=== PATIENT | female | born 1950 | race Caucasian/White ===

== ENCOUNTER 2021-05-22 11:52 | Inpatient (IN) | payer MEDICARE ==
--- NOTE | 2021-05-21 20:00 | NUR ---
SPOKE WITH PATIENT'S SPOUSE AND UPDATE GIVEN. EXPLAINED PATIENT IS CALMER THIS EVENING AND HAD AN EPISODE OF BEING TEARFUL IN THE ATERNOON. PATIENT'S SPOUSE REPORTED TO NURSE SHE WAS HAVING THE SAME ISSUES AT HOME PRIOR TO GOING TO [facility]. RELATED FAMILY IS GOING TO WAIT ABOUT VISITING UNTIL PATIENT IS MORE AT EASE AND COMFORTABLE WITH NEW ENVIRONMENT.
--- NOTE | ~2021-05-22 | DS ---
PATIENT:TWIN PORTER :46 MEDICAL RECORD: [id number] DISCHARGE SUMMARY ADMISSION DATE: 05/22/21 DISCHARGE DATE: 05/30/21 IDENTIFYING DATA: The patient is 70 years old and she is admitted to the hospital on a voluntary basis. CHIEF COMPLAINT: Aggression. HISTORY OF PRESENT ILLNESS: The patient has a history of dementia. She has been cared for at home, but she has been aggressive with her family. She has no recollection of this and is clearly impaired cognitively. HOSPITAL COURSE: The patient was admitted to the hospital and evaluated from both a medical, psychological, and social standpoint. She was treated with both mood stabilizing and memory enhancing medications and showed improvement through the course of her hospitalization. DISCHARGE DIAGNOSES: AXIS I: Major neurocognitive disorder of the Alzheimer's type with behavioral disturbances. AXIS II: None. AXIS III: Stroke. AXIS IV: Moderate. AXIS V: Global assessment of functioning is 35. PLAN: At the time of discharge, the patient was not acutely dangerous to herself or others. Her behaviors had improved. Her long-term prognosis is guarded. TRANSINT:[id number] Voice Confirmation ID: [id number] DOCUMENT ID: [id number] NINA CLEARY MD CC: [id number] DICTATION DATE: 05/30/21 1441 ADMINISTRATIVE PERSONAL ASSISTANT: 05/31/21 0152 DIS IN 05/30/21 [id number] [place] [address]
[2021-05-22 13:23] LABS: EOSINOPHILS 0.1 % (0-7); HEMATOCRIT 37.6 % (36.0-48.0); HEMOGLOBIN 12.7 g/dL (12-16); LYMPHOCYTES 32.7 % (15-50); MCH 29.6 pg (26.0-34.0); MCHC 33.8 g/dL (31.0-37.0); MCV 87.5 fL (80.0-100.0); MEAN PLATELET VOLUME 8.2 fL (7.4-10.4); NEUTROPHILS 59.2 % (40-80); PLATELET COUNT 265 10x3/uL (130-400); RDW 13.7 % (11.5-14.5); WBC 6.6 10x3/uL (4.8-10.8)
[2021-05-22 13:24] LABS: BILIRUBIN NEGATIVE (NEGATIVE); KETONE NEGATIVE mg/dL (< 1+); NITRITE NEGATIVE (NEGATIVE); PH 7.5 (5.0-8.0); UROBILINOGEN NORMAL mg/dL (< 2)
[2021-05-22 13:32] LABS: UDS - AMPHET NEGATIVE QUAL (NEGATIVE); UDS - BARB NEGATIVE QUAL (NEGATIVE); UDS - BENZO NEGATIVE QUAL (NEGATIVE); UDS - COCAINE NEGATIVE QUAL (NEGATIVE); UDS - OPIATE NEGATIVE QUAL (NEGATIVE); UDS - PCP NEGATIVE QUAL (NEGATIVE); UDS - THC NEGATIVE QUAL (NEGATIVE)
[2021-05-22 13:35] LABS: ANION GAP 12.9 mmol/L (8-16); CARBON DIOXIDE 29.1 mmol/L (21.0-32.0); CREATININE - SERUM 0.8 mg/dL (0.6-1.3)
[2021-05-22 13:49] LABS: ALBUMIN 3.8 g/dL (3.4-5.0); BILIRUBIN - TOTAL 0.44 mg/dL (0.2-1.3); MAGNESIUM - SERUM 2.4 mg/dL (1.8-2.4); PROTEIN - SERUM 7.4 g/dL (6.4-8.2); THYROID STIMULATING HORMONE 1.91 uIU/mL (0.36-3.74)
[2021-05-22 15:28] LABS: SARS-CoV-2 ANTIGEN NEGATIVE- SARS-COV-2 (NEGATIVE)
[2021-05-22] MEDS ORDERED: SEROQUEL50 MG PO (16:25)
[2021-05-22] MEDS ORDERED: ATIVAN1 MG PO (16:26)
[2021-05-22] MEDS ORDERED: CYMBALTA60 MG PO (19:14)
[2021-05-22] MEDS ORDERED: GABAPENTIN300 MG PO (19:15)
[2021-05-22] MEDS ORDERED: NAMENDA10 MG PO (19:16)
[2021-05-22] MEDS ORDERED: TRAZODONE HCL50 MG PO (19:16)
[2021-05-22] MEDS ORDERED: ULTRAM50 MG PO (19:17)
[2021-05-22] MEDS ORDERED: MELATONIN5 M3 PO (19:17)
[2021-05-22] MEDS ORDERED: REMERON15 MG PO (19:18)
[2021-05-22] MEDS ORDERED: DONEPEZIL HCL10 MG PO (19:18)
--- NOTE | 2021-05-22 19:20 | NUR ---
NEW ADMIT TO DOCTOR CLEARY ON RESIDENTIAL FROM [facility] ED FOR ALTERED MENTAL STATUS. PATIENT LIVES AT HOME WITH AND IS A PATIENT OF [facility]. PATIENT HAS BEEN INCREASINGLY CONFUSED, AGITATED, AND COMBATIVE WITH THE . [facility] NURSE REPORTED THAT PATIENT DOES NOT RECOGNIZE HER SPOUSE AND BECOMES AGGRESSIVE WITH HIM. PATIENT TRANSPORTED TO RESIDENTIAL VIA WHEELCHAIR FROM ED. ACCOMPANIED BY AND STAFF. CONSENTS TO TREAT AND DNR CODE STATUS RECEIVED FROM BIRGIT PORTER, AND GUARDIAN. PASSCODE OF 4753 AND UNIT INFORMATION GIVEN TO .
[2021-05-22 19:45] LABS: CHOL - HDL RATIO 2.2 ratio (2.3-4.1); THYROID STIMULATING HORMONE 1.79 uIU/mL (0.36-3.74)
[2021-05-22 20:00] VITALS: BP 138/69
--- NOTE | 2021-05-22 21:51 | NUR ---
PT IS ALERT AND ORIENTED TO SELF ONLY. RESTLESS AT TIMES. EXPRESSES WISHES TO CALL HER DAD TO COME GET HER. EASY TO REDIRECT. ASSISTED INTO BED AND COVERED WITH WARM BLANKET. BED ALARM ON AND PROVIDED NON SKID SOCKS TO PT. MONITOR FOR SAFETY.
[2021-05-23 01:47] VITALS: BP 138/69; BMI 22.1
--- NOTE | 2021-05-23 05:18 | NUR ---
PT TEARFUL. YELLING OUT. STATES "THIS IS TERRIBLE A SITUATION. YOU SHOULD NOT DO PEOPLE LIKE THIS. YOU SHOULD BE ASHAMED OF YOURSELF" ASKED PT WHAT HAS BEEN DONE THAT IS TERRIBLE. PT REFUSES TO ACKNOWLEDGE STAFF AT THIS TIME.
--- NOTE | 2021-05-23 09:10 | NUR ---
pt called to check on pt. passcode given. nurse gave an update on how the firer helper reported for the pt. she did okay was restless. compliant with meds.
[2021-05-23 10:16] VITALS: BP 135/78
[2021-05-23 13:13] VITALS: Wt 59.7 kg
--- NOTE | 2021-05-23 13:45 | NUR ---
IS AMBULATORY,RECEIVED THIS AM UP IN HALLWAY.ORIENTED TO SELF ONLY,VERY CONFUSED.ASKING ABOUT HER TODAY.IS COMPLIANT WITH MEDS AND STAFF.WILL CONTINUE WITH CURRENT PLAN OF CARE,MONITOR FOR CHANGES AND SAFETY.
--- NOTE | 2021-05-23 16:16 | NUR ---
THIS NURSE TALKING TO CAHR DAVIS AT THIS TIME. DAUGHTER STATED "WHAT MEDS DO YOU HAVE HER ON? IF SHE IS ON THAT ABILIFY IT DOES NOT WORK. THEY WERE GIVING HER HIGH HIGH DOSES OF THAT MEDICATION. I DONT UNDERSTAND WHY SHE WAS ON THAT MED. SHE WAS AT PLACE [facility] FOR 9 DAYS AND THEY DIDN'T PUT HER ON NOTHING WHILE SHE WAS THERE." NURSE STATED SHE WAS ON HIGH DOSES OF ABILIFY?" DAUGHTER STATED "YES EVEN THE HOSPICE NURSE WAS DOUBLING THE DOSE OF MEDICATIONS IT OBVIOUSLY WASN'T WORKING. I DONT UNDERSTAND WHY THEY CONTINUE TO DOUBLE THE MEDICATION. MY DAD WAS GIVING HER 50 IN THE MORNING AND AT NIGHT. IT DIDNT WORK. I DONT KNOW WHY THEY WERE GIVING HER THAT MED AT ALL." NURSE STATED THAT SHE WOULD NEED A COMPUTER TO LOOK AT PT NOW AND PREVIOUS MEDICATIONS." NURSE OBTAINTED A COMPUTER PULLED UP PT PAST MEDICATION LIST. NURSE READ OFF MEDICATION LIST. NOTED ABILIFY WAS NOT ON MEDICATION LIST. NURSE READ OFF SEROQUEL AND OTHER MEDICATIONS. SHE STATED "WELL MAYBE IT WAS SEROQUEL. WHATS THE GENETRIC NAME OF THE MEDICATION?" NURSE STATED "QUETIAPINE" "THAT'S THE MEDICATION. THEY JUST DOUBLING IT AND GIVING HER MORE AND MORE. IT WASN'T WORKING. SHE WASN'T SLEEPING AT NIGHT EITHER. THEY GAVE HER THAT OLD TIMEY ANTIDEPRESSION MEDICATION, WHAT TRAZODONE?IT IS SUPPOSE TO MAKE HER SLEEP. WELL IT DIDN'T SHE BE UP AT NIGHT WANDERING AND NOT SLEEPING. WHAT ARE Y'ALL USING? WHERE ARE HER GLASSES?" NURSE STATED SHE HAD NOT SEEN PT WITH GLASSES AT THIS TIME. PT WAS NOTED RUBBING HER EYE THIS SHIFT." PT WAS NOTED GETTING VERY ANXIOUS, RUBBING HER EYES MORE, TAKING VERY DEEP BREATHS AND FIDGETING IN CHAIR. NURSE ASKED PT IF SHE WAS ANXIOUS AND SHE STATED YEAH I'M ANXIOUS. NURSE OFFERED PT SOMETHING FOR ANXIETY. PT REFUSED. DAUGHTER STATED YEAH I BE ANXIOUS IF I WAS GETTING TALKED OVER LIKE SHE IS. SO WHERE ARE HER GLASSES? AND WHAT MEDICATIONS DO YALL HAVE HER ON? I HOPE ITS NOT THE SEROQUEL CAUSE THAT DID NOTHING TO HELP HER. I DONT UNDERSTAND WHY SHE HAD TO HAVE A PSYCHOTIC EPISODE TO COME HERE. DOES SHE LOOK PSYCHOTIC TO YOU?" DIRECTOR STATED PT DID NOT COME IN WITH GLASSES AND CALLED NURSE FROM PREVIOUS SHIFT TO [facility] NO GLASSES UPON ADMISSION." DAUGHTER STATED WELL MAYBE IT GOT LOST BETWEEN HER AND THE ER I DONT KNOW." NURSE WENT OVER MEDICATION LIST AT THIS TIME. NURSE EDUCATED ON DEMENTIA DISEASE PROGRESSION, MEDICATION, SOMETIMES A PSYCHOTIC EPIDOSE COULD BE GETTING AGITATED, AGGRESSIVE, WANDERING, ATTEMPTING TO LEAVE THE HOUSE, NOT SLEEPING. ITS GOING TO BE A SLOW PROCESS WITH MEDICATION ADJUSTMENTS DUE PHYSCIAN TO ENSURE MEDICATIONS ARE WORKING CORRECTLY." SHE DID NOT VERBALIZIE UNDERSTANDING. SHE KEPT REPEATING WELL I DONT WANT HER ON THAT OTHER MEDICATION IT DIDN'T WORK. SHE IS ONE OF THE KINDEST MOST GENTLE WOMAN I KNOW. THIS ISN'T HER AT ALL."NURSE EDUCATED ON HOW EVERY PATIENT PROGRESSES DIFFERENTLY WITH DEMENTIA. WHICH IS WHY THE UNIT RECOMMANDS PT NOT HAVE VISITORS FOR THE FIRST WEEKEND TO ALLOW PT TO SETTLE IN AND SEE HOW THEY GO." SHE DID NOT VOICE UNDERSTANDING. NURSE AGAIN ASKED PT IF SHE WANTED SOMETHING FOR ANXIETY AND PT REFUSED. NURSE GAVE NAME AND SHIFTS THAT SHE WOULD BE HERE. SHE REQUESTED NURSE WRITE DOWN NAME AT THIS TIME. NURSE DID SO. PT WAS VERY ANXIOUS AND WAS MOVING AROUND IN CHAIR AND DAUGHTER TOOK HER TO LOOK OUT WINDOW AT THIS TIME. STAFF GAVE PT A DRINK AT THIS TIME PER DAUGHTER REQUEST.
[2021-05-23 20:00] VITALS: BP 115/55
--- NOTE | 2021-05-23 20:10 | NUR ---
PT IS ALERT AND ORIENTED TO SELF ONLY. RECEIVED IN THE HALLWAY OUTSIDE OF THE NURSES STATION. CRYING AT TIMES. COMPLIANT WITH ALL MEDICATION. RESISTANT TO REDIRECTION. ADMINISTERED PRN ATIVAN PO PER ORDERS FOR ANXIETY. MONITOR FOR SAFETY.
--- NOTE | 2021-05-23 21:10 | NUR ---
PT RUNNING IN HALLS YELLING "IM NOT GOING TO DO IT, GET ME OUT OF HERE!" ATTEMPTED TO REDIRECT. PT BECAME AGGRESSIVE AND SLAPPING STAFF. BANGING AND SLAMMING DOORS. UNABLE TO REDIRECT. ADMINISTERED PRN HALDOL 2 MG IM PER ORDERS.
--- NOTE | 2021-05-23 21:40 | NUR ---
PT IS STILL COMBATIVE WITH STAFF. THRASHING HERSELF VIOLENTLY AT STAFF. KICKING STAFF IN GUT. THREATENING TO KILL STAFF. CONTINUE TO MONITOR FOR EFFECTIVENESS.
--- NOTE | 2021-05-23 22:11 | NUR ---
PT RESTING CALMLY IN BED WITH EYES CLOSED. NO SIGNS OF DISTRESS NOTED. MONITOR FOR SAFETY.
[2021-05-24 08:14] LABS: RAPID PLASMA REAGIN Non Reactive (Non Reactive)
--- NOTE | 2021-05-24 09:23 | NUR ---
CALLED TO CHECK ON PT AT THIS TIME. PASSCODE GIVEN AT THIS TIME. NURSE GAVE UPDATE ON HOW SHE WAS DOING. NURSE STATED SHE DID NOT HAVE A GOOD NIGHT. AFTER VISITATION SHE BECOME AGITATED COMBATIVE WITH STAFF AND UNABLE TO REDIRECT. PT HAD BECOME ANXIOUS AND CRYING AT VISITATION. STAFF WAS ABLE TO REDIRECT AT THIS TIME. LATER IN THE SHIFT PT STATED SHE WAS LEAVING. PT STARTED BANGING ON DOOR, SCREAMING, HITTING AND KICKING STAFF. STAFF GAVE ORAL MEDICATION FOR ANXIETY TO CALM DOWN. THE MEDICATION WAS NOT EFFECTIVE AND AH HOUR LATER HALDOL WAS ADMINISTERED AT THAT TIME. PT STATED ON THATS NOT GOOD. SHE WOULD DO THAT AT HOME ABOUT 6 OR SO EVERY EVENING. I DONT KNOW WHAT MEDICATIONS YOU HAVE HER ON BUT THEIR NOT WORKING. NURSE EDUCATED ON MEDICATIONS TAKE TIME TO WORK ITS DAY NUMBER 2 OF ADMISSION. THE UNIT RECOMMENDS THAT THE PT NOT HAVE VISITORS THE FIRST WEEKEND TO AVOID MAKING THE PT UPSET AND ANXIOUS. HE VOICED UNDERSTANDING STATING HE DID NOT VISIT HER AT ALL DURING THE TIME SHE WAS IN [facility] AND THAT HE WOULD COME THURSDAY INSTEAD OF THIS WEEKEND. HE DID NOT WANT TO UPSET HER MORE. HE APOLOGIZE FOR HER BEHAVIORS AT THIS TIME. NURSE THANKED HIM AND VOICE UNDERSTANDING. STAFF WAS HERE TO CARE FOR THE PT AND WAS TRAINED TO DO SO AT THIS TIME. HE STATED HE WOULD CALL AND CHECK ON HE LATER.
[2021-05-24 13:37] VITALS: BP 133/72
--- NOTE | 2021-05-24 16:02 | NUR ---
Alert, restless, pacing about day area searching for . No aggression. Quite confused. Easily re-directable. Meds administered per orders with complete med compliance noted. No adverse reaction to meds. Cont. POC, monitoring for aggressive episodes.
--- NOTE | 2021-05-24 16:05 | NUR ---
Alert, calm, cooperative, confused. Meds admin per orders with complete med compliance. No adverse reaction to meds. No aggressive episodes. Continue POC, monitoring for aggression and med compliance.
--- NOTE | 2021-05-24 16:16 | NUR ---
LATE ENTRY: PER ADMITTING NURSE STATED SAID "PT HAD GLASSES BUT LOST THEM A LONG TIME AGO."
[2021-05-24 20:00] VITALS: BP 134/68
--- NOTE | 2021-05-25 01:34 | NUR ---
B)RECEIVED PATIENT SITTING OUTSIDE THE NURSE'S STATION. ORIENTED TO SELF ONLY. POOR EYE CONTACT. NO INSIGHT INTO THE REASON FOR HOSPITALIZATION. DIFFICULTY FOLLOWING TOPIC OF CONVERSATION. COOPERATIVE WITH STAFF REQUEST. WITHDRAWN AROUND PEERS. I)ADMINISTER MEDS AND MONITOR COMPLIANCE. MONITOR FOR AGGRESSIVE BEHAIVOR AND REDIRECT NEEDED. R)MED COMPLIANT. NO AGGRESSIVE BEHAVIOR NOTED. POOR REORIENTATION RELATED TO IMPAIRED ABILITY TO COMPREHEND, PROCESS AND RETAIN INFORMATION. P)CONTINUE POC AND PROVIDE SAFE ENVIRONMENT.
[2021-05-25 08:00] VITALS: BP 126/68
--- NOTE | 2021-05-25 08:10 | NUR ---
Received patient pacing the hallway by the nurses station. Awake and alert to person only at this time. Patient continues searching for her at this time. Calm and cooperative with assessment at this time. No aggression noted at this time.Patient can become very tearful at times.Patient is restless at this time. Redirect and reorient as needed. Patient is easily redirected at times. Patient is confused and has little to no insight into her situation at this time. Fall precautions in place for safety. Will continue plan of care.
[2021-05-25 20:00] VITALS: BP 136/83
--- NOTE | 2021-05-25 20:09 | NUR ---
nurse spoke with pt at this time. passcode given. nurse gave an update on how she is doing. nurse stated she was pacing, a bit anxious with no combative behavior noted. she is compliant with meds. nurse went over new medications started. nurse educated on the coupling of medications will give desired effect. trazadone did not work at home but couple with other medications will calm the pt enough to sleep and calm down the anxiety. he voiced understanding he was giving her melatonin, trazadone, bendryl to help her sleep. nurse stated given time will help with the sleep once the correct meds for behaviors are given. he voiced understanding. he stated he would call in the morning to check on her.
--- NOTE | 2021-05-26 00:49 | NUR ---
B)RECEIVED PATIENT SITTING OUTSIDE THE NURSES STATION. ORIENTED TO SELF ONLY. WITHDARWN. FREQUENTLY GOES BACK AND FORTH TO HER ROOM. UNABLE TO FOLLOW TOPIC OF CONVERSATION AND DIFFICULTY WITH VERBAL INSTRUCTIONS. HAS TO BE SHOWN WHERE HER BATHROOM IS IN HER ROOM. WORRIES EXCESSIVELY AT TIMES AND WILL ASK ABOUT HER . I)ADMINISTER MEDS AND MONITOR COMPLIANCE. REORIENT NEEDED. R)MED COMPLIANT. POOR REORIENTATION DUE TO IMPAIRED ABILITY TO COMPREHEND, PROCESS AND RETAIN INFORMATION, P)CONTINUE POC AND PROVIDE SAFE ENVIRONMENT.
[2021-05-26 08:00] VITALS: BP 123/77
--- NOTE | 2021-05-26 16:10 | NUR ---
ALERT, RESTLESS, PACES OCCASIONALLY, QUITE CONFUSED, ORIENTED TO PERSON. MEDS ADMIN PER ORDERS WITH COMPLETE MED COMPLIANCE NOTED. NO ADVERSE REACTION TO MEDS. NO AGGRESSION NOTED. CONTINUE POC.
--- NOTE | 2021-05-26 19:35 | NUR ---
RECEIVED IN HALLWAY STANDING AT NURSES STATION. DEMANDING TO GO HOME. STATING SHE CAN'T STAY HERE. CRYING AT TIMES. COOPERATIVE WITH CARE AND ASSESSMENT. NOSIGNS OF AGGRESSION. REDIECT AND REORIENT NEED. CONTINUES TO WANT GO HOME. STATES SHE CAN'T BELIEVE WE ARE DOING THIS TO HER. CONTINUE PLAN OF CARE.
[2021-05-26 22:25] VITALS: BP 141/73
[2021-05-27 08:00] VITALS: BP 144/72
--- NOTE | 2021-05-27 15:01 | NUR ---
RECEIVED IN HALLWAY OUTSIDE OF NURSES STATION. WANDERING THE HALLS AND ATTEMPTING TO GO INTO ROOMS OF OTHER PATIENTS. VERY CONFUSED. EXIT SEEKING. CALM AND COOPERATIVE WITH CARE AND ASSESSMENT. PATIENT BECOMES AGITATED WITH REDIRECTION. NO AGGRESSIVE BEHAVIOR. REDIRECT AND REORIENT NEEDED. SITTING IN GROUP AT THIS TIME. CONTINUE PLAN OF CARE.
--- NOTE | 2021-05-27 19:36 | NUR ---
RECEIVED IN HALLWAY. SITTING IN A CHAIR WITH PEERS AT HER SIDE. RESTLESS AT TIMES. VERY CONFUSED. CALM AND COOPERATIVE WITH CARE AND ASSESSMENT. NO SIGNS OF AGGRESSION. REDIRECT AND REORIENT NEEDED. CONTINUES TO SIT CALMLY WITH PEERS. CONTINUE PLAN OF CARE.
[2021-05-27 22:38] VITALS: BP 124/72
[2021-05-28 08:00] VITALS: BP 136/70
--- NOTE | 2021-05-28 08:16 | NUR ---
Received patient pacing hallway by nurses station. Calm and cooperative with assessment at this time. Patient is very restless at times. Patient is confused. pt malin little to no insight into her situation at this time. Patient can become aggressive with redirection at times. Redirect and reorient as needed. Fall precautions in place for safety. Will continue plan of care.
--- NOTE | 2021-05-28 16:47 | PN ---
PATIENT:TWIN PORTER MEDICAL RECORD: [id number] LOCATION:[facility] ADMISSION DATE: 05/22/21 PROGRESS NOTE DATE OF SERVICE: 05/27/2021 SUBJECTIVE: The patient's case was discussed with staff. She has no new complaint. OBJECTIVE: The patient is eating very well. She is sleeping adequately. She has poor insight about her situation. She has not been aggressive with staff, but is tearful at times. ASSESSMENT: Dementia. PLAN: Current medicines have been reviewed. I am going to reduce the dose of her melatonin slightly and will also discontinue the trazodone secondary to her sleeping adequately. TRANSINT:[id number] Voice Confirmation ID: [id number] DOCUMENT ID: [id number] NINA CLEARY MD at 1647 CC: [id number] DICTATION DATE: 05/27/21 162 EVENT MGR: 05/28/21 [address] [facility] [address] [place] [address]
--- NOTE | 2021-05-28 19:11 | NUR ---
RECEIVED IN HALLWAY OUTSIDE OF NURSES STATION. RESTLESS AT TIMES. CALM AND COOPERATIVE WITH CARE AND ASSESSMENT. NO SIGNS OF AGGRESSION. REDIRECT AND REORIENT NEEDED. CONTINUES TO SIT WITH PEERS OUTSIDE OF NURSES STATION. CONTINUE PLAN OF CARE.
--- NOTE | 2021-05-28 20:05 | NUR ---
SPOKE WITH PATIENT'S SPOUSE. UPDATE GIVEN AND QUESTIONS ANSWERED. RELATED HE WILL CALL BACK TOMORROW.
[2021-05-28 22:15] VITALS: BP 133/57
--- NOTE | 2021-05-29 08:10 | NUR ---
PT SISTER CALLED TO CHECK ON PT AT THIS TIME. PASSCODE GIVEN. SHE STATED WELL I JUST WANTED TO KNOW HOW SHE WAS DOING. THEY ASKED NOT TO VISIT FOR A WHILE CAUSE AFTER WE DID LAST WEEK THE NEXT DAY SHE HAD A BAD DAY. NURSE STATED PT HAD A BAD NIGHT AFTER VISITATION THAT NIGHT. SHE BECAME COMBATIVE AND WAS UNABLE TO BE REDIRECTED FROM DOORS THINKING SHE WAS GOING HOME WITH FAMILY MEMBERS. SHE DID NOT VOICE UNDERSTANDING. SHE STATED WELL OKAY WELL HOW DID SHE DO LAST NIGHT? WE WERE REALLY HOPING THAT WE COULD SEE HER. ALSO WHAT MEDICATIONS IS SHE TAKING? LAST WEEK ALBIN TOLD ME SHE WAS TAKING CYMBALTA LAST WEEK. IS SHE STILL TAKING THAT?" NURSE STATED I HAVE THE REPORT FROM THE PREVIOUS SHIFT AND TIME OF MY SHIFT. PT IS RESTLESS AND PACING. SHE IS NOT COMBATIVE OR AGGRESSIVE AT ALL. SHE IS COMPLIANT WITH ALL MEDICATIONS. EASY TO REDIRECT. SHE IS CURRENTLY STILL TAKING CYMBALTA AT REDUCED DOSAGE AND IS TOLERATING THE DOSE VERY WELL. SHE STATED DO MIGUELINA HAVE SUCCESS WITH THAT MEDICATIONS WITH PEOPLE WITH DEMENTIA? HOW LONG DOES THAT TAKE TO GET IN HER SYSTEM? IS THERE A SECTION OF THE BRAIN MAKES A PERSON AGGRESSIVE?" NURSE STATED YES THE PT IS TOLERATING THE MEDICATION WELL. EVERY PERSON IS DIFFERENT WITH DEMENTIA. THERE IS NO WAY TO KNOW FOR SURE HOW A PERSON WOULD REACT. ZAHRA SOMEWHAT VOICED UNDERSTANDING.
[2021-05-29 08:44] VITALS: BP 122/65
--- NOTE | 2021-05-29 09:40 | NUR ---
Nutrition Re-Assessment Diet: Regular PO intake: ~86% average x last 9 meals Last BM: 05/25/21 Wt: 133.2# (05/26/21); Admit Wt: 137# (05/22/21)- noted -3.8# Meds and labs reviewed Patient appears to remain at low nutrition risk at this time. Please consult RD if further MNT is medically indicated and/or desired by MD. RD will continue to monitor for nutrition risk factors DHS. RD will follow-up within 7 days.
--- NOTE | 2021-05-29 10:59 | PN ---
PATIENT:TWIN PORTER MEDICAL RECORD: [id number] LOCATION:[facility] ADMISSION DATE: 05/22/21 PROGRESS NOTE DATE OF SERVICE: 05/28/2021 SUBJECTIVE: The patient's case was discussed with staff. She has no new complaint. OBJECTIVE: The patient is in good behavioral control. She has poor insight about her situation. She is eating and sleeping well, but is only oriented to person. TRANSINT:[id number] Voice Confirmation ID: [id number] DOCUMENT ID: [id number] NINA CLEARY MD at 1059 CC: [id number] DICTATION DATE: 05/28/21 1649 DRY WALL PLASTERER: 05/28/21 1921 ADM IN [id number] [place] [address]
[2021-05-29] MEDS ORDERED: CYMBALTA20 MG PO (11:06)
[2021-05-29] MEDS ORDERED: AKWA TEARS15 ML LEFT EYE (11:06)
[2021-05-29] MEDS ORDERED: VITAMIN B-12500 MCG PO (11:07)
[2021-05-29] MEDS ORDERED: MELATONIN 3 MG1 TAB PEG (11:07)
[2021-05-29] MEDS ORDERED: VITAMIN D PO (11:07)
--- NOTE | 2021-05-29 14:04 | NUR ---
Rec'd patient this am ambulatory in [facility]. She is a/o to person only. She is med compliant and and takes meds whole or crushed. She does better with crushed as she has a difficult time being directed. She is confused. She has demonstrated signs of confusion and aggression. She is restless and paces the unit. She wanders airmlessly. She is not redirectable. She walked around during group activities this am.
--- NOTE | 2021-05-29 15:08 | NUR ---
Patient will not keep her hands and fingers away from her eyes. She is attempted to be redirected after each time shes asked to remove her fingeru
--- NOTE | 2021-05-29 16:05 | NUR ---
Patient was sitting on the sofa, got up and walked over to another patient who was sitting in a reclining w/c. She reached over and pulled his blanket off of him and walked back to the sofa. This nurse went over and attempted to retreive the blanket. She became very aggressive and started to hit, kick, and scratch at both of the employees. She stated that was "her blanket". She was redirected and settled down without further behaviors.
--- NOTE | 2021-05-30 01:28 | NUR ---
B)RECEIVED PATIENT PACING ON THE UNIT. ANXIOUS. ORIENTED TO SELF ONLY. PT BECAME AGITATED AND ALMOST TURNED THE DYNAMAP OVER. WHEN STAFF ATTEMPTED TO REDIRECT PATIENT. PT BECAME DEFIANT AND WAS YELLING FOR HELP AND WAS NOT COOPERATIVE WHEN STAFF WAS TRYING TO GET HER TO GO TO HER ROOM AND DE-ESCALATE. PT WAS TEARFUL RELATING "I DON'T DO THAT. I'M A CHRISTAIN." ENCOURAGED PATIENT TO CLOSE HER EYES AND TAKE SOME DEEP BREATHS. COMPLIED WITH REQUEST. I)ADMINISTER MEDS AND MONITOR COMPLIANCE. MONITOR BEHAVIOR AND PROVIDE SUPPORT NEEDED. R)MED COMPLIANT. PT CALMED WHEN IT WAS ONE TO ONE TALKING WITH HER. PT HAS DIFFICULTY UNDERSTANDING SIMPLE COMMANDS DUE TO IMPAIRED THOUGHT PROCESS. P)CONTINUE POC ABD PROVIDE SAFE ENVIRONMENT.
[2021-05-30 08:51] VITALS: BP 109/62
[2021-05-30 09:09] VITALS: BP 109/62
--- NOTE | 2021-05-30 09:46 | NUR ---
PT SISTER CHAR CALLED AT THIS TIME. PASSCODE GIVEN. WE WERE SURPRISED TO HEAR SHE WAS GOING HOME TODAY. I MEAN WE ARE GLAD SHE IS GOING HOME. BUT I WANTED TO ASK IS HER MEDICATIONS WORKING? SHE GONNA GO HOME AND BEAT HER UP? WE ARE GOING TO NEED A SCRIPT FOR THAT HALDOL YALL GIVE HER." NURSE STATED SHE WAS NOT HAVING ANY AGGRESSIVE BEHAVIORS. KEEPING HER IN A LOW STIMULUS ENVIRONMENT, KEEPING HER ON A SCHEDULE AND CORRECT MEDICATIONS WOULD BE THE RECOMMADATION OF THE UNIT. PT HAS NOT HAD ANY PRN MEDICATIONS IN MORE THAN 4 DAYS. WE DO NOT WRITE PRESCRIPTIONS FOR OUR NEEDED MEDICATIONS DUE TO PT HAVING A CORRECT MED REGIMEN THAT WORKS FOR HER. PT HAS DONE WELL WITH THIS ENVIRONMENT AND OTHER PTS WITHOUT BEHAVIORS. SHE STATED WELL THERE ARE 2 PEOPLE IN THE HOME AND ITS LOW STIMULUS SHE WAS STILL HAVING BEHAVIORS. SO I DONT UNDERSTAND HOW THIS IS GOING TO BE DIFFERENT. SHE NEEDS THOSE MEDS. SHE WASN'T SLEEPING AT NIGHT. IS SHE GONNA SLEEP AND NOT GET UP AT MIDNIGHT THINKING ITS THE MORNING." NURSE STATED PT WAS SLEEPING HERE BETWEEN 6 TO 7 HOURS. REDIRECTION, CALM BEHAVIORS FROM THE STAFF, CONTINUE TO ANSWER HER QUESTIONS CALMLY AND INVOLVE HER IN THE CONVERSATIONS IS HOW TO KEEP HER CALM WITHOUT ANY BEHAVIORS. STAFF HAS EDUCATED AT TIMES AND WILL AGAIN UPON D/C. NURSE EDUCATED THIS FAMILY MEMBER WELL TO DISPLAY CALM EMOTIONS WHEN SPEAKING WITH PT PT CAN FEEL THE EMOTIONS PUT OFF. NURSE STATED PT MEDICATIONS IF GIVEN CORRECTLY ARE EFFECTIVE. SHE STATED SHE DOESN'T NEED XANAX TO KEEP HER CALM? SHE DOESNT NEED SOMETHING MORE." NURSE STATED THE PT WAS NOT ON XANAX AT THIS TIME NOR HAS SHE BEEN DURING ADMISSION. NO PRN MEDICATIONS WILL BE PRESCRIBED. NURSE STATED UPON D/C EDUCATION WILL BE GIVEN. PT IS D/C WITH HOSPICE. IF HOSPICE FEELS MORE MEDS ARE NEEDED THEY CAN PRESCRIBE THEM. SHE STATED WELL HE NEEDS SOMEONE TO COME IN AND TAKE OVER TO GIVE HIM A BREAK. NURSE STATED OUR SOICAL WORKER OR BOILER PLANT WORKER CAN GIVE RESOURCES WELL FOR EXTRA CAREGIVERS IF IT IS NEEDED. SHE SOMEWHAT VOICED UNDERSTANDING.
--- NOTE | 2021-05-30 11:17 | NUR ---
Rec'd this am walking in hallway. She is a/o to person only. She is pacing and wandering aimlessly. She keeps her hands on her face or her eyes all the time. Staff reinforces her to keep her hands out of her face and eyes. She is med compliant and took her meds crushed this morning and placed in food. She has really difficult time following any directions or redirections. She has been tearful this am and continuously asking staff if her and where her " is" and then the staff will answer and within 4 minutes she will repeat the same question. She is very confused and anxious. She will argue and scream at staff if at any time she feels presuured to complete a task. She has multiple brusies and abrations on her upper and lower extremeties.Plans are for discharge today.
--- NOTE | 2021-05-30 14:05 | NUR ---
pt d/c home with family at this time. pt was excited to leave at this time. smiling and blowing kisses to director of social media marketing. all personal belongings sent with pt at this time. all paperwork given to the family. medications explained and medications sent to pharmacy. pt ambulated to personal car. pt tolerated d/c very well. staff educated and gave education on dementia. redirection techniques.
--- NOTE | 2021-05-30 14:21 | PN ---
PATIENT:TWIN PORTER MEDICAL RECORD: [id number] LOCATION:[facility] ADMISSION DATE: 05/22/21 PROGRESS NOTE DATE OF SERVICE: 05/29/2021 SUBJECTIVE: The patient's case was discussed with staff. She has no new complaint. OBJECTIVE: The patient is in good behavioral control with limited insight about her situation. She is participating in treatment and although quite confused, is eating and sleeping well. ASSESSMENT: Dementia. PLAN: Current medicines have been reviewed and will be maintained. Long-term prognosis is guarded. TRANSINT:[id number] Voice Confirmation ID: [id number] DOCUMENT ID: [id number] NINA CLEARY MD at 1421 CC: [id number] DICTATION DATE: 05/29/21 1605 DESK EDITOR: 05/29/21 1733 ADM IN [facility] [address] [place] [address]
== END 2021-05-30 14:20 | disposition home health service (06) | DRG 57 ==
LOC: D.ER 11:52 → D.EDHOLD 14:05 → D.PSYCH 14:05
PROVIDERS: Family Medicine; ADMIT Psychiatry & Neurology Psychiatry; ATTEND Psychiatry & Neurology Psychiatry
DX: G30.1 Alzheimer's disease with late onset (principal); F02.81 Dementia in other diseases classified elsewhere, unspecified severity, with behavioral disturbance; I10 Essential (primary) hypertension; E55.9 Vitamin D deficiency, unspecified; F32.9 Major depressive disorder, single episode, unspecified; G47.00 Insomnia, unspecified